=== PATIENT | male | born 1980 | race Caucasian/White ===

== ENCOUNTER 2018-12-11 19:13 | Emergency (ER) | payer SELFPAY ==
[~2018-12-11] VITALS: Wt 81.1 kg
[2018-12-11 19:35] VITALS: BP 132/80; PULSE 111; RESP 18
== END 2018-12-11 22:23 | disposition left against medical advice (07) ==
LOC: FTE 19:13
DX: Z53.21 Procedure and treatment not carried out due to patient leaving prior to being seen by health care provider (principal)